=== PATIENT | male | born 1990 | race American Indian/Alaskan Native ===

== ENCOUNTER 2016-06-17 05:26 | Emergency (ER) | payer OTHER ==
[2016-06-17 05:36] VITALS: BMI 41.5
[2016-06-17 05:42] VITALS: TEMP 98
--- NOTE | 2016-06-17 05:53 | ED PDOC ---
Arrival/HPI - General Chief Complaint: Male Genitourinary Time Seen by Provider: 06/17/16 05:34 - History of Present Illness Narrative History of Present Illness (Text): 25M c/o worsening left testicular pain constant for the last 3 to 4 days. worse w movement. denies any urinary complaints. will not say how many sexual partners he has had in the last 6 months but reports always using protection. Past Medical History - Psychiatric Hx Substance Use: No - Anesthesia Hx Anesthesia: No Family/Social History Family/Social History: Other (nc) Smoking Status: Never Smoked Hx Alcohol Use: No Hx Substance Use: No Allergies/Home Meds Allergies/Adverse Reactions: Allergies shellfish derived Allergy (Verified 06/17/16 05:36) RASH Review of Systems - Review of Systems Constitutional: absent: Fevers Respiratory: absent: SOB Cardiovascular: absent: Chest Pain Gastrointestinal: absent: Abdominal Pain, Nausea, Vomiting Genitourinary Male: absent: Dysuria, Frequency, Hematuria Physical Exam Vital Signs Reviewed: Yes Vital Signs Temp Pulse Resp BP Pulse Ox 06/17/16 10:00 68 18 124/62 98 06/17/16 07:07 76 18 132/84 100 06/17/16 05:41 98.0 F 85 16 152/75 H 97 Appearance: Positive for: Well-Appearing, Non-Toxic, Comfortable Pain Distress: None Mental Status: Positive for: Alert and Oriented X 3 - Systems Exam Head: Present: Atraumatic Respiratory/Chest: Present: Clear to Auscultation. No: Accessory Muscle Use Cardiovascular: Present: Regular Rate and Rhythm Abdomen: No: Tenderness, Distention Genitourinary Male: Present: Testicle Tenderness (left epididymis). No: Penile Discharge, Penile Swelling, Masses, Erythema, Hernias, Testicle Swelling Neurological: Present: GCS=15 Skin: Present: Warm, Dry Psychiatric: Present: Alert, Oriented x 3 Medical Decision Making - Lab Interpretations Microbiology Results: Microbiology Results 06/17/16 Unknown Urine,Clean Catch Urine Culture - Final No Growth (<1,000 CFU/ML) Lab Results: Lab Results 06/17/16 05:30: Urine Color Yellow, Urine Appearance Sl cloudy, Urine pH 6.0, Ur Specific [place] >= 1.030, Urine Protein Trace H, Urine Glucose (UA) Negative , Urine Ketones Negative, Urine Blood Negative, Urine Nitrate Negative, Urine Bilirubin Negative, Urine Urobilinogen 4.0 H, Ur Leukocyte Esterase Trace H, Urine RBC 0 - 2, Urine WBC 5 - 10, Ur Epithelial Cells 0 - 2, Urine Bacteria Rare, C.trachomatis RNA (TMA) Detected H, N.gonorrhoeae RNA (TMA) Not detected - RAD Interpretation Radiology Orders: 06/17/16 05:41 TESTES DUPLEX COMPLETE [US] Stat Disposition/Present on Arrival - Present on Arrival Any Indicators Present on Arrival: No History of DVT/PE: No History of Uncontrolled Diabetes: No Urinary Catheter: No History of Decub. Ulcer: No History Surgical Site Infection Following: None - Disposition Have Diagnosis and Disposition been Completed?: Yes Diagnosis: Testicular pain Disposition: HOME/ ROUTINE Disposition Time: 10:00 Condition: GOOD Discharge Instructions (ExitCare): Urinary Tract Infection in Men (ED) Additional Instructions: PLEASE RETURN TO THE EMERGENCY DEPARTMENT FOR NEW OR WORSENING SYMPTOMS. RETURN RIGHT AWAY IF YOU CANNOT FOLLOW UP WITH YOUR PRIMARY CARE DOCTOR, CLINIC, OR SPECIALIST IN 1-2 DAYS. Please follow-up in medical records for your STD results in 2-3 days Prescriptions: Nitrofurantoin Macrocrystals [Macrobid] 100 mg PO BID #14 cap Ibuprofen [Motrin] 600 mg PO Q8 PRN #12 tab PRN Reason: Pain, Moderate (4-7) Referrals: Iban García MD [Staff Provider] - Follow up with primary Kelly García MD [Staff Provider] - Follow up with primary Forms: WORK NOTE Physician Patient Turnover Patient Signed Over To: Elliot Patricia Handoff Comments: f/u US
[2016-06-17 06:08] LABS: URINE BILIRUBIN NEGATIVE (NEGATIVE); URINE BLOOD NEGATIVE (NEGATIVE); URINE GLUCOSE (UA) NEGATIVE (NEGATIVE); URINE KETONE NEGATIVE (NEGATIVE); URINE LEUKOCYTE ESTERASE TRACE Leu/uL (NEGATIVE); URINE PROTEIN TRACE mg/dL (<30 mg/dL)
[2016-06-17 06:10] LABS: URINE APPEARANCE SL CLOUDY (CLEAR); URINE COLOR YELLOW (YELLOW)
[2016-06-17 06:19] LABS: URINE BACTERIA RARE (NEG); URINE EPITHELIAL CELLS 0 - 2 /hpf (0-5); URINE RBC 0 - 2 /hpf (0-2)
[2016-06-17 07:07] VITALS: RESP 18
--- NOTE | 2016-06-17 07:09 | ED PDOC ---
Physical Exam Vital Signs Reviewed: Yes Vital Signs Temp Pulse Resp BP Pulse Ox 06/17/16 07:07 76 18 132/84 100 06/17/16 05:41 98.0 F 85 16 152/75 H 97 Temperature: Afebrile Blood Pressure: Hypertensive Pulse: Regular Respiratory Rate: Normal Appearance: Positive for: Well-Appearing, Non-Toxic, Comfortable Pain Distress: None Mental Status: Positive for: Alert and Oriented X 3 Medical Decision Making ED Course and Treatment: 06/17/16 07:09 Patient signed out to me by Dr. Starr at 07:00. Patient presented with testicular pain. Pending ultrasound and re-evaluation. 06/17/16 07:29 On re-evaluation bilateral testicles descended, no pain. Patient aware of that he needs to follow up with medical records for STD testing. Patient declined STD prophylaxis at this time. 06/17/16 09:51 Scrotal ultrasound 06/17/2016 History: Lower abdominal pain. Scrotal ultrasound performed in standard fashion. No prior study available comparison. Findings: The right testicle measures 3.6 x 1.9 x 2.3 cm. Right testicle exhibits arterial flow. There is homogeneous echotexture without obvious mass or collection. The right epididymis measures 1.0 x 0.82 x 0.73 cm. Left testicle measures 3.9 x 1.8 x 2.3 cm and also exhibits arterial flow. Left testicle demonstrates homogeneous echotexture without mass collection or calcification. . Impression: No evidence of testicular mass or collection. Both testicles exhibit arterial flow. Pt states he understands to return to the ER right away for new or worsening symptoms or for inability to f/u with PMD or specialist as instructed. Patient states that he fully agrees with and understands discharge instructions. States that he agrees with the plan and disposition. Verbalized and repeated discharge instructions and plan. I have given the patient opportunity to ask any additional questions. - Lab Interpretations Lab Results: Lab Results 06/17/16 05:30: Urine Color Yellow, Urine Appearance Sl cloudy, Urine pH 6.0, Ur Specific [place] >= 1.030, Urine Protein Trace H, Urine Glucose (UA) Negative , Urine Ketones Negative, Urine Blood Negative, Urine Nitrate Negative, Urine Bilirubin Negative, Urine Urobilinogen 4.0 H, Ur Leukocyte Esterase Trace H, Urine RBC 0 - 2, Urine WBC 5 - 10, Ur Epithelial Cells 0 - 2, Urine Bacteria Rare - RAD Interpretation Radiology Orders: 06/17/16 05:41 TESTES DUPLEX COMPLETE [US] Stat - Scribe Statement The provider has reviewed the documentation as recorded by the Scribe Corrine Riley Provider Scribe Attestation: All medical record entries made by the Scribe were at my direction and personally dictated by me. I have reviewed the chart and agree that the record accurately reflects my personal performance of the history, physical exam, medical decision making, and the department course for this patient. I have also personally directed, reviewed, and agree with the discharge instructions and disposition. Disposition/Present on Arrival - Present on Arrival Any Indicators Present on Arrival: No History of DVT/PE: No History of Uncontrolled Diabetes: No Urinary Catheter: No History of Decub. Ulcer: No History Surgical Site Infection Following: None - Disposition Have Diagnosis and Disposition been Completed?: Yes Diagnosis: Testicular pain Disposition: HOME/ ROUTINE Disposition Time: 09:52 Patient Plan: Discharge Condition: GOOD Discharge Instructions (ExitCare): Urinary Tract Infection in Men (ED) Additional Instructions: PLEASE RETURN TO THE EMERGENCY DEPARTMENT FOR NEW OR WORSENING SYMPTOMS. RETURN RIGHT AWAY IF YOU CANNOT FOLLOW UP WITH YOUR PRIMARY CARE DOCTOR, CLINIC, OR SPECIALIST IN 1-2 DAYS. Please follow-up in medical records for your STD results in 2-3 days Prescriptions: Nitrofurantoin Macrocrystals [Macrobid] 100 mg PO BID #14 cap Ibuprofen [Motrin] 600 mg PO Q8 PRN #12 tab PRN Reason: Pain, Moderate (4-7) Referrals: Iban García MD [Staff Provider] - Follow up with primary Kelly García MD [Staff Provider] - Follow up with primary Forms: WORK NOTE
--- NOTE | 2016-06-17 09:47 | US ---
Scrotal ultrasound 06/17/2016 History: Lower abdominal pain. Scrotal ultrasound performed in standard fashion. No prior study available comparison. Findings: The right testicle measures 3.6 x 1.9 x 2.3 cm. Right testicle exhibits arterial flow. There is homogeneous echotexture without obvious mass or collection. The right epididymis measures 1.0 x 0.82 x 0.73 cm. Left testicle measures 3.9 x 1.8 x 2.3 cm and also exhibits arterial flow. Left testicle demonstrates homogeneous echotexture without mass collection or calcification. . Impression: No evidence of testicular mass or collection. Both testicles exhibit arterial flow.
[2016-06-17 10:35] VITALS: BP 124/62; PULSE 68; O2SAT 98
== END 2016-06-17 10:00 | disposition home or self-care (01) ==
LOC: ED 05:26
DX: N50.812 Left testicular pain (principal)

== ENCOUNTER 2016-11-05 09:07 | Emergency (ER) | payer OTHER ==
[2016-11-05 09:16] VITALS: BMI 41.7
[2016-11-05 09:19] VITALS: BP 136/84; PULSE 73; RESP 17; TEMP 98.4; O2SAT 96
--- NOTE | 2016-11-05 09:46 | ED PDOC ---
Arrival/HPI - General Chief Complaint: Headache Time Seen by Provider: 11/05/16 09:42 Historian: Patient - History of Present Illness Narrative History of Present Illness (Text): 11/05/16 09:42 26 y/o male, pmh including testicular pain, nkda, c/o lt. sided posterior head cyst x 2-3 weeks. Pt. stated that he feels there is painless lump on the lt. posterior head, only painful when he put the hat on it which he does wear head every single day, no neck stiffness, no fever or chills, no chest pain or shortness of breath, no night sweat, no palpitation, no other medical or psychological complaints. Pt. stated that he has no pain now in the ER, no change in vision, no palpitation, no rash, no other medical or psychological complaints. Past Medical History - Provider Review Nursing Documentation Reviewed: Yes - Infectious Disease Hx of Infectious Diseases: None - Psychiatric Hx Substance Use: No - Surgical History Hx Appendectomy: Yes - Anesthesia Hx Anesthesia: Yes Hx Anesthesia Reactions: No Family/Social History - Physician Review Nursing Documentation Reviewed: Yes Family/Social History: Unknown Family HX Smoking Status: Heavy Smoker > 10 Cigarettes Daily Hx Alcohol Use: Yes Frequency of alcohol use: Socially Hx Substance Use: No Allergies/Home Meds Allergies/Adverse Reactions: Allergies shellfish derived Allergy (Mild, Verified 11/05/16 09:16) RASH Home Medications: Home Meds Medication Instructions Recorded Confirmed No Known Home Med 11/05/16 11/05/16 Review of Systems - Review of Systems Constitutional: absent: Fatigue, Fevers Eyes: absent: Vision Changes ENT: absent: Hearing Changes Respiratory: absent: SOB, Cough, Sputum Cardiovascular: absent: Chest Pain Gastrointestinal: absent: Abdominal Pain, Nausea, Vomiting Neurological: Headache. absent: Dizziness, Focal Weakness, Gait Changes Psychiatric: absent: Anxiety, Depression Physical Exam Vital Signs Reviewed: Yes Vital Signs Temp Pulse Resp BP Pulse Ox 11/05/16 09:18 98.4 F 73 17 136/84 96 Temperature: Afebrile Blood Pressure: Normal Pulse: Regular Respiratory Rate: Normal Appearance: Positive for: Well-Appearing, Non-Toxic, Comfortable Pain Distress: Mild Mental Status: Positive for: Alert and Oriented X 3 - Systems Exam Head: Present: Atraumatic, Normocephalic, Other (there is a painless cyst approx. 1.5cm diameter without any cellulitis or erythematous, there is no fluctuant abscess or signs of abscess, no signs of infection. ). No: Contusion , Swelling, Ecchymosis, Abrasion, Laceration Pupils: Present: PERRL Extroacular Muscles: Present: EOMI Conjunctiva: Present: Normal Mouth: Present: Moist Mucous Membranes Neck: Present: Normal Range of Motion Respiratory/Chest: Present: Clear to Auscultation, Good Air Exchange. No: Respiratory Distress, Accessory Muscle Use Cardiovascular: Present: Regular Rate and Rhythm, Normal S1, S2. No: Murmurs Abdomen: Present: Normal Bowel Sounds. No: Tenderness, Distention, Peritoneal Signs Back: Present: Normal Inspection Upper Extremity: Present: Normal Inspection. No: Cyanosis, Edema Lower Extremity: Present: Normal Inspection. No: Edema Neurological: Present: GCS=15, CN II-XII Intact, Speech Normal Skin: Present: Warm, Dry, Normal Color. No: Rashes Psychiatric: Present: Alert, Oriented x 3, Normal Insight, Normal Concentration Medical Decision Making ED Course and Treatment: 11/05/16 09:48 -Pt. stated that he has pain now, no focal neurological deficits, normal finger to nose and normal heel to lorenzana test. -There is no emergent indication of the radiology study at this time. -Discharge home with education on avoid putting on the hat, outpatient follow up with the pmd and general surgeon for cyst removal within 2 days, return to the ER for any new or worsening signs or symptoms. - PA / CHILD CARE GIVER / Resident Statement / has reviewed & agrees with the documentation as recorded. Disposition/Present on Arrival - Present on Arrival Any Indicators Present on Arrival: No History of DVT/PE: No History of Uncontrolled Diabetes: No Urinary Catheter: No History of Decub. Ulcer: No History Surgical Site Infection Following: None - Disposition Have Diagnosis and Disposition been Completed?: Yes Diagnosis: Scalp cyst Disposition: HOME/ ROUTINE Disposition Time: 09:49 Patient Plan: Discharge Condition: GOOD Additional Instructions: -Discharge home with education on avoid putting on the hat, outpatient follow up with the pmd and general surgeon for cyst removal within 2 days, return to the ER for any new or worsening signs or symptoms. Referrals: [facility] Lucila Valles, [Non-Staff] - Follow up with primary Jose M Love MD [Medical Doctor] - Follow up with primary [facility] [place] [Outside] - Follow up with primary Forms: MTailor (Faroese), WORK NOTE
== END 2016-11-05 10:10 | disposition home or self-care (01) ==
LOC: ED 09:07
DX: L72.9 Follicular cyst of the skin and subcutaneous tissue, unspecified (principal)